=== PATIENT | female | born 1995 | race Hispanic/Latino ===

== ENCOUNTER 2021-04-24 19:17 | Emergency (ER) | payer SELFPAY ==
[~2021-04-24] VITALS: Ht 160 cm; Wt 57.9 kg
[2021-04-24] MEDS ORDERED: MULTTAB20 PO (19:29)
[2021-04-24 21:55] LABS: BASO # 0.1 10^3/uL (0.0-0.2); BASO % 0.5 % (0.0-1.0); EOS # 0.1 10^3/uL (0.0-0.5); HEMATOCRIT 41.2 % (36.0-47.0); HEMOGLOBIN 13.7 g/dl (12.0-15.5); LYMPH # 2.4 10^3/uL (1.5-5.0); MEAN CORPUSCULAR HEMOGLOBIN 26.8 pg (27.0-33.0); MEAN CORPUSCULAR HGB CONC 33.3 g/dl (32.0-36.5); MEAN CORPUSCULAR VOLUME 80.5 fl (80.0-96.0); MONO # 1.1 10^3/uL (0.0-0.8); MONO % 9.1 % (2.0-8.0); NEUTROPHILS # 7.9 10^3/uL (1.5-8.5); PLATELET COUNT, AUTOMATED 390 10^3/uL (150-450); RED BLOOD COUNT 5.12 10^6/uL (4.00-5.40); WHITE BLOOD COUNT 11.6 10^3/uL (4.0-10.0)
[2021-04-24 22:25] LABS: BLOOD UREA NITROGEN 9 MG/DL (7-18); CALCIUM LEVEL 9.3 MG/DL (8.5-10.1); CARBON DIOXIDE LEVEL 24 MEQ/L (21-32); CHLORIDE LEVEL 102 MEQ/L (98-107); CREATININE FOR GFR 0.51 MG/DL (0.55-1.30); GLOMERULAR FILTRATION RATE > 60.0 (>60); GLUCOSE, FASTING 302 MG/DL (70-100); HCG, SERUM QUANTITATIVE 395 MIU/ML; POTASSIUM SERUM 4.1 MEQ/L (3.5-5.1); SODIUM LEVEL 135 MEQ/L (136-145)
[2021-04-24 23:30] VITALS: BP 139/79
--- NOTE | 2021-04-24 23:44 | REPVR ---
PROCEDURE INFORMATION: Exam: US First Trimester, Transabdominal Exam date and time: 04/24/2021 10:53 PM Age: 25 years old Clinical indication: Lmp or gestational age (in weeks): 02/09/2021; Other: Vaginal bleeding; TECHNIQUE: Imaging protocol: Real-time transabdominal obstetrical ultrasound of the maternal pelvis and a first trimester , less than 14 weeks 0 days, with image documentation. COMPARISON: No relevant prior studies available. FINDINGS: MATERNAL: Uterus: Uterus measures 7.3 x 4.2 x 5.6 cm. No uterine or endometrial masses. Endometrium is mildly thickened at 16 mm. No gestational sac or pole is seen. Cervix: Unremarkable. Right adnexa: There is a complex cyst in the right ovary measuring 2.6 cm. Right ovary is otherwise unremarkable. Normal blood flow. No hydrosalpinx. Left adnexa: Unremarkable. No cyst or mass. Intraperitoneal space: No intraperitoneal free fluid. IMPRESSION: 1. Mild endometrial thickening. No uterine or endometrial masses. 2. No intrauterine . 3. 2.6 cm complex cyst in the right ovary. Electronically signed by: Peter Christensen On 04/24/2021 23:43:52 PM
--- NOTE | 2021-04-25 08:02 | ED PDOC ---
Post-Departure Follow-Up first trimester us faxed to dr smith for fu Cong Del Castillo MD Apr 25, 2021 08:02
== END 2021-04-24 23:49 | disposition home or self-care (01) ==
LOC: M ED 19:17
DX: O20.0 Threatened abortion (principal); O36.80X0 Pregnancy with inconclusive fetal viability, not applicable or unspecified; Z88.0 Allergy status to penicillin; Z3A.00 Weeks of gestation of pregnancy not specified

== ENCOUNTER → 2022-07-07 | Outpatient (CLI) | payer MEDICAID ==
[~2022-07-07] MED LIST: MULTTAB20 PO
[2022-07-07 16:31] LABS: HCG, SERUM QUALITATIVE NEGATIVE (NEGATIVE)
[2022-07-07 16:57] LABS: FOLLICLE STIMULATING HORMONE 8.5 mIU/mL; LUTEINIZING HORMONE 4.2 mIU/mL
== END ==
LOC: M PLALAB 13:39
PROVIDERS: ATTEND Advanced Practice Midwife
DX: N91.2 Amenorrhea, unspecified (principal)

== ENCOUNTER → 2022-07-13 | Outpatient (CLI) | payer MEDICAID | LOC: M WHC 09:08 | PROVIDERS: ATTEND Advanced Practice Midwife | DX: N91.2 Amenorrhea, unspecified (principal); N96 Recurrent pregnancy loss ==

== ENCOUNTER → 2022-08-11 | Outpatient (REF) | payer OTHER, MEDICAID | LOC: M SFHCWAGY 10:06 | PROVIDERS: ATTEND Advanced Practice Midwife | DX: Z12.4 Encounter for screening for malignant neoplasm of cervix (principal); N88.8 Other specified noninflammatory disorders of cervix uteri ==

== ENCOUNTER → 2022-08-25 | Outpatient (REF) | payer OTHER | LOC: M PLALAB 06:48 | PROVIDERS: ATTEND Advanced Practice Midwife | DX: R87.615 Unsatisfactory cytologic smear of cervix (principal) ==

== ENCOUNTER → 2022-11-10 | Outpatient (REF) | payer OTHER | LOC: M SFHCWAGY 16:49 | PROVIDERS: ATTEND Advanced Practice Midwife | DX: N88.8 Other specified noninflammatory disorders of cervix uteri (principal); R87.615 Unsatisfactory cytologic smear of cervix; L53.9 Erythematous condition, unspecified; Z12.4 Encounter for screening for malignant neoplasm of cervix ==

== ENCOUNTER → 2025-01-09 | Outpatient (REF) | payer OTHER ==
[2025-01-09 16:24] LABS: Trichomonas vaginalis (AMP) NOT DETECTED (NEGATIVE)
[2025-01-09 16:48] LABS: GC DNA AMPLIFICATION NEGATIVE (NEGATIVE)
[2025-01-12 14:18] LABS: HPV APTIMA Not Detected (Not Detected)
== END ==
LOC: M SFHCWAGY 14:18
PROVIDERS: ATTEND Nurse Practitioner Family
DX: Z12.4 Encounter for screening for malignant neoplasm of cervix (principal); N72 Inflammatory disease of cervix uteri

== ENCOUNTER → 2025-01-18 | Outpatient (REF) | payer OTHER | LOC: M WUC 21:28 | PROVIDERS: ATTEND Physician Assistant | DX: R11.2 Nausea with vomiting, unspecified (principal) ==

== ENCOUNTER → 2025-09-13 | Outpatient (REF) | payer OTHER ==
[~2025-09-13] MED LIST changes: +ACET-897 PO; +ASPI81TAEC PO; +BLOO-308 XX; +CHOL1STR MC; +FREEMIS42 TOP; +GNPPAD5 XX; +INSUDET SC; +INSUHUMDS SC; +LISI10TA22 PO; +PEN1MIS15 SC; +VITAD1000T PO
[2025-09-13 15:20] LABS: Trichomonas vaginalis (AMP) NOT DETECTED (NEGATIVE)
[2025-09-13 15:44] LABS: GC DNA AMPLIFICATION NEGATIVE (NEGATIVE)
== END ==
LOC: M SFHCWAGY 13:04
PROVIDERS: ATTEND Student in an Organized Health Care Education/Training Program
DX: O09.90 Supervision of high risk pregnancy, unspecified, unspecified trimester (principal)

== ENCOUNTER → 2025-09-16 | Outpatient (CLI) | payer OTHER ==
[2025-09-16 10:35] LABS: PLATELET COUNT, AUTOMATED 277 10^3/uL (150-450)
[2025-09-16 11:49] LABS: HIV 1&2 SCREEN NEGATIVE (NEGATIVE)
[2025-09-16 11:57] LABS: HEPATITIS C VIRUS ABY INDEX < 0.02 INDEX (<0.8)
== END ==
LOC: M PLALAB 09:06
PROVIDERS: ATTEND Student in an Organized Health Care Education/Training Program
DX: O24.111 Pre-existing type 2 diabetes mellitus, in pregnancy, first trimester (principal); Z3A.00 Weeks of gestation of pregnancy not specified

== ENCOUNTER 2025-09-24 07:13 | Outpatient (CLI) | payer OTHER ==
[~2025-09-24] VITALS: Ht 160 cm; Wt 58.2 kg
[~2025-09-24 07:13] MED LIST changes: +ALBUTEROL SULFATE 2.5 MG/0.5 ML INH CONCENTRATE NEB SOLN INH PRN; +EPINEPHrine INJ 1 MG/ML 1ML AMP IM PRN; +diphenhydrAMINE 50 MG/ML VIAL IV PRN
[2025-09-24] MEDS: ACETAMINOPHEN 650 MG PO ONE (07:39)
[2025-09-24 07:46] VITALS: BP 115/69; O2SAT 98
[2025-09-24] MEDS: IRON SUCROSE 200MG IVP IV ONE (07:57)
[2025-09-24 08:56] VITALS: BP 107/63; O2SAT 99
== END 2025-09-24 09:00 ==
LOC: M INFU 07:13
PROVIDERS: ATTEND Obstetrics & Gynecology
DX: O99.019 Anemia complicating pregnancy, unspecified trimester (principal); Z88.0 Allergy status to penicillin; Z3A.00 Weeks of gestation of pregnancy not specified
CPT/HCPCS: 96374; J1756

== ENCOUNTER 2025-10-08 12:56 | Outpatient (CLI) | payer OTHER ==
[~2025-10-08] VITALS: Ht 160 cm; Wt 58.6 kg
[2025-10-08 13:20] VITALS: BP 125/78; O2SAT 100
[2025-10-08] MEDS: diphenhydrAMINE 25MG PO PRIOR TO INFUSION PO ONE (13:30)
[2025-10-08] MEDS: ACETAMINOPHEN 650MG PO PRIOR TO INFUSION PO ONE (13:31)
[2025-10-08] MEDS: IRON SUCROSE 200MG IVP IV ONE (13:32)
[2025-10-08 13:58] VITALS: BP 106/58; O2SAT 100
== END 2025-10-08 14:02 ==
LOC: M INFU 12:56
PROVIDERS: ATTEND Obstetrics & Gynecology
DX: O99.019 Anemia complicating pregnancy, unspecified trimester (principal); Z3A.00 Weeks of gestation of pregnancy not specified; Z88.0 Allergy status to penicillin
CPT/HCPCS: 96374; J1756

== ENCOUNTER 2025-10-15 12:56 | Outpatient (CLI) | payer OTHER ==
[2025-10-15] MEDS ORDERED: ACETAMINOPHEN 650MG PO PRIOR TO INFUSION PO ONE (13:00)
[2025-10-15] MEDS ORDERED: diphenhydrAMINE 25MG PO PRIOR TO INFUSION PO ONE (13:00)
[2025-10-15 13:10] VITALS: BP 106/59; O2SAT 99
[2025-10-15] MEDS: IRON SUCROSE 200MG IVP IV ONE (13:11)
[2025-10-15 13:41] VITALS: BP 108/69; O2SAT 98
== END 2025-10-15 13:40 | disposition home or self-care (01) ==
LOC: M INFU 12:56
PROVIDERS: ATTEND Obstetrics & Gynecology
DX: O99.019 Anemia complicating pregnancy, unspecified trimester (principal); Z88.0 Allergy status to penicillin; Z3A.00 Weeks of gestation of pregnancy not specified
CPT/HCPCS: 96374; J1756

== ENCOUNTER → 2025-11-06 | Outpatient (CLI) | payer OTHER ==
[~2025-11-06] MED LIST changes: -ALBUTEROL SULFATE 2.5 MG/0.5 ML INH CONCENTRATE NEB SOLN INH PRN; -EPINEPHrine INJ 1 MG/ML 1ML AMP IM PRN; -diphenhydrAMINE 50 MG/ML VIAL IV PRN
[2025-11-06 14:13] LABS: TOTAL PROTEIN,RANDOM URINE 48.0 MG/DL (0.0-14.0)
[2025-11-06 14:50] LABS: LDH LACTATE DEHYDROGENASE 189 U/L (120-246)
[2025-11-06 14:51] LABS: ALT/SGPT 32 U/L (7.0-40); AST/SGOT 23 U/L (<34); CREATININE FOR GFR 0.42 MG/DL (0.55-1.30); GLOMERULAR FILTRATION RATE > 90.0 (>60)
[2025-11-06 14:57] LABS: PLATELET COUNT, AUTOMATED 302 10^3/uL (150-450)
== END ==
LOC: M PLALAB 11:07
PROVIDERS: ATTEND Obstetrics & Gynecology
DX: O10.919 Unspecified pre-existing hypertension complicating pregnancy, unspecified trimester (principal)

== ENCOUNTER → 2025-11-18 | Outpatient (CLI) | payer OTHER | LOC: M WHC 08:14 | PROVIDERS: ATTEND Obstetrics & Gynecology | DX: Z34.80 Encounter for supervision of other normal pregnancy, unspecified trimester (principal) ==